=== PATIENT | male | born 1980 | race Caucasian/White ===

== ENCOUNTER 2017-07-19 11:37 | Emergency (ER) | payer BC ==
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
--- NOTE | 2017-07-19 12:48 | RAD ---
Indication: Soft tissue mass medial to the knee. 2 views of left tibia and fibula demonstrates no fracture. No other bone or joint milliliters identified. IMPRESSION: No fracture of the tibia or fibula is noted.
--- NOTE | 2017-07-19 12:52 | RAD ---
Indication: Left ankle injury. 3 views of left ankle demonstrates healing fracture of the distal ankle. Ankle mortise is intact. IMPRESSION: Healing fracture distal fibula.
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
[2017-07-19 14:05] VITALS: BP 156/90
== END 2017-07-19 14:04 | disposition home or self-care (01) ==
LOC: ED 11:37
DX: S80.12XA Contusion of left lower leg, initial encounter (principal); V86.92XA Unspecified occupant of snowmobile injured in nontraffic accident, initial encounter; Y93.29 Activity, other involving ice and snow; Y92.9 Unspecified place or not applicable
CPT/HCPCS: 99282